=== PATIENT | male | born 1940 | race Caucasian/White ===

== ENCOUNTER 2018-02-10 09:25 | Emergency (ER) | payer OTHER, MEDICARE ==
--- NOTE | 2018-02-10 09:36 | PDOC ---
History of Present Illness - General Chief Complaint: Sore Throat Stated Complaint: SORE THROAT Time Seen by Provider: 02/10/18 09:26 History Source: Patient Exam Limitations: No Limitations - History of Present Illness Initial Comments: 02/10/18 09:33 77 y/o male with sore throat for several weeks. Went to Urgent care last week and place on Augmentin. Patient states that it still hurts to swallow. Recently seen by ENT and told has some swelling in throat. No N/V/d/C. No fever or weight loss. No SOB or chest pain. Hx of acid reflux. Severity: mild Associated Symptoms: denies: cough, fever/chills Past History - Travel Traveled outside of the country in the last 30 days: No Close contact w/someone who was outside of country & ill: No - Past Medical History Allergies/Adverse Reactions: Allergies Allergy/AdvReac Type Severity Reaction Status Date / Time No Known Allergies Allergy Verified 02/10/18 09:26 Home Medications: Ambulatory Orders Aspirin [ASA -] 81 mg PO DAILY 01/17/12 Esomeprazole Mag Trihydrate [Nexium] 40 mg PO DAILY 01/17/12 Metoprolol Succinate [Toprol XL -] 50 mg PO BID 01/17/12 Ramipril [Altace] 10 mg PO DAILY 01/17/12 Rosuvastatin [Crestor -] 20 mg PO DAILY 04/17/13 Tamsulosin HCl [Flomax -] 0.4 mg PO DAILY 04/17/13 Dexamethasone 4 mg PO TID #9 tablet 02/10/18 Finasteride 5 mg PO DAILY 02/10/18 Rivaroxaban [Xarelto -] 20 mg PO DAILY 02/10/18 Anemia: No Asthma: No Cancer: No Cardiac Disorders: Yes (CAD. NEGATIVE CARDIAC CATH 01/2012) CVA: No COPD: Yes (EMPHYSEMA) CHF: No Dementia: No Diabetes: No GI Disorders: Yes (GERD, ENDOSCOPY 01/2012) Disorders: No HTN: Yes Hypercholesterolemia: Yes Liver Disease: No Seizures: No Thyroid Disease: No - Surgical History Abdominal Surgery: Yes (HERNIA SURGERY) Appendectomy: No Cardiac Surgery: Yes (CARDIAC CATH (NO INTERVENTION DONE)) Cholecystectomy: No Lung Surgery: No Neurologic Surgery: No Orthopedic Surgery: No - Suicide/Smoking/Psychosocial Hx Smoking Status: Yes Smoking History: Former smoker Have you smoked in the past 12 months: No Number of Cigarettes Smoked Daily: 0 If you are a former smoker, when did you quit?: 1957 Hx Alcohol Use: No Drug/Substance Use Hx: No Substance Use Type: None Hx Substance Use Treatment: No Review of Systems - Review of Systems Able to Perform ROS?: Yes Is the patient limited Ivorian proficient: No Constitutional: No: Chills, Diaphoresis HEENTM: Yes: Throat Pain. No: Eye Pain, Nose Congestion, Throat Swelling, Mouth Pain Respiratory: No: Cough, Shortness of Breath Cardiac (ROS): No: Chest Pain, Edema ABD/GI: No: Nausea, Vomiting Musculoskeletal: No: Muscle Pain Integumentary: No: Rash Neurological: No: Headache All Other Systems: Reviewed and Negative *Physical Exam - Physical Exam General Appearance: Yes: Nourished, Appropriately Dressed. No: Apparent Distress HEENT: positive: EOMI, MARIA C, Normal ENT Inspection, Normal Voice, Symmetrical, Pharynx Normal (no erythema, exudates or peritonsillar abscess seen). negative : Sinus Tenderness Neck: positive: Trachea midline, Supple. negative: Tender, Normal Thyroid, Rigid, Carotid bruit Respiratory/Chest: positive: Lungs Clear, Normal Breath Sounds. negative: Chest Tender, Respiratory Distress Cardiovascular: positive: Regular Rhythm, Regular Rate, S1, S2. negative: Edema , JVD, Murmur Vascular Pulses: Femoral (R): 4+, Femoral (L): 4+, Carotid (R): 4+, Carotid (L) : 4+, Dorsalis-Pedis (R): 4+, Doralis-Pedis (L): 4+ Gastrointestinal/Abdominal: positive: Normal Bowel Sounds, Flat, Soft. negative : Tender, Organomegaly, Pulsatile Mass Lymphatic: negative: Adenopathy, Tenderness, Other Musculoskeletal: positive: Normal Inspection. 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 02/10/18 09:38 Will hold off on strep test since already on Augmentin ENT appears normal. Long standing, needs ENT follow up *DC/Admit/Observation/Transfer Diagnosis at time of Disposition: Pharyngitis Qualifiers: Pharyngitis/tonsillitis etiology: unspecified etiology Qualified Code(s): J02.9 - Acute pharyngitis, unspecified - Discharge Dispostion Disposition: HOME Condition at time of disposition: Stable Decision to Admit order: No - Referrals - Patient Instructions Printed Discharge Instructions: DI for Pharyngitis/Tonsillopharyngitis -- Adult Additional Instructions: Fluids, rest, Tylenol Continue Augmentin Decadron 4 mg 3x/day for 3 days Follow up with ENT If worsen return to ER - Post Discharge Activity
[2018-02-10 10:09] VITALS: BP 152/82; PULSE 60; TEMP 97.8; BMI 27.7
== END 2018-02-10 09:55 | disposition home or self-care (01) ==
LOC: FER 09:25
DX: J02.9 Acute pharyngitis, unspecified (principal); Z87.891 Personal history of nicotine dependence; I10 Essential (primary) hypertension; E78.00 Pure hypercholesterolemia, unspecified; K21.9 Gastro-esophageal reflux disease without esophagitis; J44.9 Chronic obstructive pulmonary disease, unspecified
CPT/HCPCS: 99283-25

== ENCOUNTER 2018-08-03 07:33 | Emergency (ER) | payer OTHER, MEDICARE ==
[2018-08-03 08:02] VITALS: BP 140/75; PULSE 66; TEMP 98.4; BMI 26.6
--- NOTE | 2018-08-03 08:37 | PDOC ---
History of Present Illness - General Chief Complaint: Cold Symptoms Stated Complaint: POST NASAL DRIP, COUGH Time Seen by Provider: 08/03/18 08:00 History Source: Patient, Family Exam Limitations: No Limitations - History of Present Illness Initial Comments: 08/03/18 08:37 CHIEF COMPLAINT: Phlegm in the throat for one month HISTORY OF PRESENT ILLNESS: 77-year-old man presents complaining of needing to clear his throat of phlegm for a month. He has a slight cough to clear the phlegm. The phlegm is generally white and occasionally slightly yellow. The symptoms started many weeks ago. He was seen by the ENT doctor approximately 4 weeks ago and had laryngoscopy performed which was normal. He went to the urgent care center recently and was given a nasal spray for postnasal drip, but the symptoms have continued. He comes in now stating he is concerned he could have pneumonia. There is no chest pain. There is no shortness of breath. There is no fever. There is a slight cough with some white sputum production. No hemoptysis. No weight change. He smoked a little in his 20's but has not smoked in over 50 years. REVIEW OF SYSTEMS: GENERAL/CONSTITUTIONAL: No fever or chills. No weakness. No weight change. HEAD, EYES, EARS, NOSE AND THROAT: No change in vision. No ear pain or discharge. No sore throat. Positive phlegm in throat. Positive nasal CARDIOVASCULAR: No chest pain or shortness of breath. RESPIRATORY: Mild cough, no wheezing, no hemoptysis. GASTROINTESTINAL: No nausea, vomiting, diarrhea or constipation. No rectal bleeding. GENITOURINARY: No dysuria, frequency, or change in urination. MUSCULOSKELETAL: No joint or muscle swelling or pain. No neck or back pain. SKIN AND BREASTS: No rash or easy bruising. NEUROLOGIC: No headache, vertigo, loss of consciousness, or loss of sensation. PSYCHIATRIC: No depression or anxiety. ENDOCRINE: No increased thirst. No abnormal weight change. HEMATOLOGIC/LYMPHATIC: No anemia, easy bleeding, or history of blood clots. ALLERGIC/IMMUNOLOGIC: No hives or skin allergy. No latex allergy. Past History - Past Medical History Allergies/Adverse Reactions: Allergies Allergy/AdvReac Type Severity Reaction Status Date / Time No Known Allergies Allergy Verified 08/03/18 07:44 Home Medications: Ambulatory Orders Aspirin [ASA -] 81 mg PO DAILY 01/17/12 Ramipril [Altace] 10 mg PO DAILY 01/17/12 Rosuvastatin [Crestor -] 20 mg PO DAILY 04/17/13 Tamsulosin HCl [Flomax -] 0.4 mg PO DAILY 04/17/13 Finasteride 5 mg PO DAILY 02/10/18 Rivaroxaban [Xarelto -] 20 mg PO DAILY 02/10/18 Atenolol [Tenormin -] 50 mg PO DAILY 08/03/18 Esomeprazole Magnesium [Nexium 24Hr] 40 mg PO HS 08/03/18 Ipratropium Cullen 30 ml NS TID 08/03/18 Montelukast Na [Singulair -] 10 mg PO HS #30 tablet 08/03/18 Anemia: No Asthma: No Cancer: No Cardiac Disorders: Yes (CAD. NEGATIVE CARDIAC CATH 01/2012, takes xarelto for heart rhythm) CVA: No COPD: Yes (EMPHYSEMA) CHF: No Dementia: No Diabetes: No GI Disorders: Yes (GERD, ENDOSCOPY 01/2012) Disorders: No HTN: Yes Hypercholesterolemia: Yes Kidney Stones: Yes Liver Disease: No Seizures: No Thyroid Disease: No - Surgical History Abdominal Surgery: Yes (HERNIA SURGERY) Appendectomy: No Cardiac Surgery: Yes (CARDIAC CATH (NO INTERVENTION DONE)) Cholecystectomy: No Lung Surgery: No Neurologic Surgery: No Orthopedic Surgery: No - Suicide/Smoking/Psychosocial Hx Smoking Status: Yes Smoking History: Former smoker Have you smoked in the past 12 months: No Number of Cigarettes Smoked Daily: 0 If you are a former smoker, when did you quit?: 1957 Hx Alcohol Use: No Drug/Substance Use Hx: No Substance Use Type: None Hx Substance Use Treatment: No *Physical Exam - Physical Exam Comments: 08/03/18 08:53 awake alert and fully oriented, a bit hard of hearing appears well eyes clear conj nose with no discharge, nl membranes op clear, nl tonsils and posterior pharynx neck no adenopathy chest clear bs throughout, no wheezes, no crackles heart rr nl s1s2 no M or marck abd soft and NT with no organomegaly extrem nl, no edema, NT, no erythema neuro nl skin nl psych nl Medical Decision Making - Medical Decision Making 08/03/18 08:57 Patient with chronic nasal drip and cough from the throat with white phlegm. Has been seen in ENT and had normal laryngoscopy. Went to urgent care and got ipratropium nasal spray. Here now with concern for pneumonia, but hx and clinical exam is negative for pneumonia. CXR done and prelim by me is normal. F/u program activated for final read. Patient given Rx for singulair and advised to continue the nasal spray. Further follow up regarding response to treatment with primary MD. *DC/Admit/Observation/Transfer Diagnosis at time of Disposition: Allergic rhinitis Qualifiers: Allergic rhinitis trigger: unspecified Allergic rhinitis seasonality: unspecified Qualified Code(s): J30.9 - Allergic rhinitis, unspecified - Discharge Dispostion Disposition: HOME Condition at time of disposition: Stable Decision to Admit order: No - Prescriptions Prescriptions: Montelukast Na [Singulair -] 10 mg PO HS #30 tablet - Referrals Referrals: Andreina Jacobs MD [Primary Care Provider] - - Patient Instructions Printed Discharge Instructions: DI for Allergic Rhinitis Additional Instructions: Today you were evaluated for a nasal drip with phlegm and cough. The Chest x- ray is normal with no pneumonia. The examination of the throat and lungs is clear and normal. Take montelukast (Singulair) at bedtime to help relieve the allergies. Follow up with your primary care doctor. Return to the ER for any sever or progressive symptoms. - Post Discharge Activity
== END 2018-08-03 09:01 | disposition home or self-care (01) ==
LOC: FER 07:33
DX: J30.9 Allergic rhinitis, unspecified (principal); J43.9 Emphysema, unspecified; I10 Essential (primary) hypertension; E78.00 Pure hypercholesterolemia, unspecified; Z87.442 Personal history of urinary calculi; Z87.891 Personal history of nicotine dependence
CPT/HCPCS: 71046-TC-FY; 99282-25

== ENCOUNTER 2019-01-25 07:36 | Emergency (ER) | payer OTHER, MEDICARE ==
[2019-01-25] MEDS ORDERED: MECLIZINE HCL 25 MG TABLET (FP) PO ONE (07:53)
[2019-01-25] MEDS ORDERED: ONDANSETRON 4 MG TABLET PO ONE ×2 (07:53→08:02)
--- NOTE | 2019-01-25 07:56 | PDOC ---
History of Present Illness - General Chief Complaint: Ear Problem Stated Complaint: rt ear pain Time Seen by Provider: 01/25/19 07:37 History Source: Patient Exam Limitations: No Limitations - History of Present Illness Initial Comments: 01/25/19 07:56 78y M presenting with complaint of R ear pain for the past 3 days. Pt notes the pain is a pressure like sensation with an itching sensation in his R throat. Pt endorses feelng nauseus and soemtimes feels dizzy. Pt unable to elaborate on his dizziness (ie: lighteaded vs. vertigo) but states it si worse when he lays down and lasts for a few seconds when he stands up. Pt denies any fever/chills , neck pain, vision changes, speech problems, cp, sob, cough, nasal congestion, palpitations, abd pain, back pain. No recent falls or injuries. Pt states he went to an urgent care and got an oral abx and a ear drop abx that he has been using. PMHx: copd, gerd, htn, hl, social: former smoker famly hx: non contributory ROS: Constitutional - no reported Fever, Chills, HEENT:+R ear pain no reported vision changes, sore throat Respiratory: no reported cough, sob, Cardiac: no reported chest pain, palpitations, Abd/GI:+Nausea no reported abd pain, vomiting, Musculskelatal - no reported back pain, skin - no reported bruising, erythema, rash neurological: +dizzy intermittently no reported headache, numbness, focal weakness, tingling, ataxia, hematologic: no reported easy bruising, easy bleeding Physical Exam GENERAL: The patient is awake, alert, and fully oriented, Nontoxic - in no acute distress. HEAD: Normocephalic, atraumatic. EYES: extraocular movements intact, sclera anicteric, conjunctiva clear. ENT: +fullness of R TM without erythema Normal voice, Moist mucous membranes. No mastoid tenderness, posterior pharynx clear non erythemadous NECK: Normal range of motion, supple LUNGS: Breath sounds equal, clear to auscultation bilaterally. No wheezes, no rhonchi, no rales. HEART: Regular rate and rhythm, without murmur, rub or gallop. ABDOMEN: Soft, nontender, No guarding, no rebound. No CVA tenderness SKIN: Warm, Dry, normal turgor, A&P - suspect his symptoms secondary to possible otitis media - no signfiicant erythema at this time but may be partially treated with his abx - no further systemic complaints - will hvae pt continue his meds zofran/meclizine for hs symptoms. will have pt fu with ENT for further monitoring return precautions were discussed I discussed the physical exam findings, ancillary test results and final diagnoses with the patient. I answered all of the patient's questions. The patient was satisfied with the care received and felt comfortable with the discharge plan and treatment plan. The patient will call their primary care physician within 24 hours to arrange follow-up and will return to the Emergency Department with any new, persistent or worsening symptoms. Past History - Past Medical History Allergies/Adverse Reactions: Allergies Allergy/AdvReac Type Severity Reaction Status Date / Time No Known Allergies Allergy Verified 08/03/18 07:44 Home Medications: Ambulatory Orders Aspirin [ASA -] 81 mg PO DAILY 01/17/12 Ramipril [Altace] 10 mg PO DAILY 01/17/12 Rosuvastatin [Crestor -] 20 mg PO DAILY 04/17/13 Tamsulosin HCl [Flomax -] 0.4 mg PO DAILY 04/17/13 Finasteride 5 mg PO DAILY 02/10/18 Rivaroxaban [Xarelto -] 20 mg PO DAILY 02/10/18 Atenolol [Tenormin -] 50 mg PO DAILY 08/03/18 Esomeprazole Magnesium [Nexium 24Hr] 40 mg PO HS 08/03/18 Ondansetron [Zofran -] 4 mg PO TID PRN #14 tablet 01/25/19 Anemia: No Asthma: No Cancer: No Cardiac Disorders: Yes (CAD. NEGATIVE CARDIAC CATH 01/2012, takes xarelto for heart rhythm) CVA: No COPD: Yes (EMPHYSEMA) CHF: No Dementia: No Diabetes: No GI Disorders: Yes (GERD, ENDOSCOPY 01/2012) Disorders: No HTN: Yes Hypercholesterolemia: Yes Kidney Stones: Yes Liver Disease: No Seizures: No Thyroid Disease: No - Surgical History Abdominal Surgery: Yes (HERNIA SURGERY) Appendectomy: No Cardiac Surgery: Yes (CARDIAC CATH (NO INTERVENTION DONE)) Cholecystectomy: No Lung Surgery: No Neurologic Surgery: No Orthopedic Surgery: No - Suicide/Smoking/Psychosocial Hx Smoking Status: Yes Smoking History: Former smoker Have you smoked in the past 12 months: No Number of Cigarettes Smoked Daily: 0 If you are a former smoker, when did you quit?: 1957 Hx Alcohol Use: No Drug/Substance Use Hx: No Substance Use Type: None Hx Substance Use Treatment: No Medical Decision Making - Medical Decision Making 01/25/19 08:10 pt declines the meclizine rx - says he has it at home will give him rx for zofran for his nausea *DC/Admit/Observation/Transfer Diagnosis at time of Disposition: Vertigo Otitis media with effusion Qualifiers: Laterality: right Qualified Code(s): H65.91 - Unspecified nonsuppurative otitis media, right ear - Discharge Dispostion Disposition: HOME Condition at time of disposition: Stable Decision to Admit order: No - Prescriptions Prescriptions: Ondansetron [Zofran -] 4 mg PO TID PRN #14 tablet PRN Reason: Nausea - Referrals Referrals: Orion Junior MD [Staff Physician] - - Patient Instructions Printed Discharge Instructions: DI for Middle Ear Infection-Adult Additional Instructions: Return to the emergency department immediately with ANY new, persistent or worsening symptoms including any headache, fever/chills, problems with your speech or vision or any othe rconcerns. Continue taking your antibiotics. You MUST call and follow up with your doctor and ENT doctor within 4-5 days for further evaluation of your symptoms. Results were discussed with you. Please make sure your doctor reviews the results of your emergency evaluation. Your Emergency Department visit is not complete without a follow up with your doctor. Print Language: UGANDAN - Post Discharge Activity
[2019-01-25 08:01] VITALS: BP 164/85; PULSE 60; TEMP 98.2; BMI 26.6
[2019-01-25] MEDS ORDERED: MECLIZINE HCL 25 MG TABLET (FP) ONE (08:03)
== END 2019-01-25 08:21 | disposition home or self-care (01) ==
LOC: FER 07:36
DX: H65.91 Unspecified nonsuppurative otitis media, right ear (principal); R42 Dizziness and giddiness; I10 Essential (primary) hypertension; E78.00 Pure hypercholesterolemia, unspecified; K21.9 Gastro-esophageal reflux disease without esophagitis; J43.9 Emphysema, unspecified; I25.10 Atherosclerotic heart disease of native coronary artery without angina pectoris; Z87.891 Personal history of nicotine dependence; Z79.82 Long term (current) use of aspirin; Z79.01 Long term (current) use of anticoagulants; Z98.61 Coronary angioplasty status
CPT/HCPCS: 99281-25

== ENCOUNTER 2020-10-25 07:48 | Day surgery (SDC) | payer OTHER, MEDICARE ==
[2020-10-22 12:46] VITALS: BMI 26.6
[2020-10-25] MEDS ORDERED: PROPOFOL 20 ML ONE ×4 (08:10→11:03)
[2020-10-25] MEDS ORDERED: LIDOCAINE HCL/PF 2% SDV 5ML VIAL ONE (08:10)
[2020-10-25 11:29] VITALS: TEMP 97.8
[2020-10-25 12:24] VITALS: BP 110/54; PULSE 74
== END 2020-10-25 12:20 | disposition home or self-care (01) ==
LOC: FASU-ENDO 07:48
PROVIDERS: ATTEND Internal Medicine Gastroenterology
PROC: 0DJD8ZZ Inspection of Lower Intestinal Tract, Via Natural or Artificial Opening Endoscopic (ICD-10-PCS; principal; 2020-10-25 10:47)
DX: Z12.11 Encounter for screening for malignant neoplasm of colon (principal); Z80.0 Family history of malignant neoplasm of digestive organs; K57.30 Diverticulosis of large intestine without perforation or abscess without bleeding

== ENCOUNTER 2021-04-30 10:05 | Emergency (ER) | payer OTHER, MEDICARE ==
[2021-04-30 10:18] VITALS: BP 151/74; PULSE 57; TEMP 97.8; BMI 26.6
[2021-04-30 11:16] LABS: ALBUMIN 4.3 g/dl (3.4-5.0); CALCIUM 9.6 mg/dl (8.5-10); CREATININE 1.2 mg/dl (0.55-1.3)
[2021-04-30 12:17] LABS: BASO % 0.6 % (0-2.0); EOS % 2.3 % (0-4.5); HEMATOCRIT 39.7 % (35.4-49); HEMOGLOBIN 13.6 GM/dL (11.7-16.9); LYMPH % 22.1 % (8-40); MCH 31.6 pg (25.7-33.7); MCHC 34.4 g/dl (32.0-35.9); MEAN CELL VOLUME 91.8 fl (80-96); PLATELET COUNT 257 10^3/uL (134-434); RBC 4.32 M/mm3 (4.00-5.60); RDW 14.1 % (11.9-15.9); WHITE BLOOD COUNT 5.5 K/mm3 (4.0-10.0)
[2021-04-30] MEDS ORDERED: ACETAMINOPHEN 325 MG TABLET (FP) PO ONE (12:25)
[2021-04-30] MEDS ORDERED: ACETAMINOPHEN 325 MG TABLET (FP) ONE (12:27)
== END 2021-04-30 12:50 | disposition home or self-care (01) ==
LOC: FER 10:05
DX: M54.50 Low back pain, unspecified (principal)
CPT/HCPCS: 36415; 72100-TC-FY; 74176-TC; 80053; 81003; 81015; 85025; 87086; 99285-25